=== PATIENT | female | born 1950 | race Caucasian/White ===

== ENCOUNTER 2021-09-02 08:31 | Outpatient (REF) | payer MEDICARE, OTHER, SELFPAY ==
[2021-09-02 09:46] LABS: Alanine Aminotransferase 16 U/L (0-31); Albumin Level 4.2 g/dL (3.5-5.0); Alkaline Phosphatase 110 U/L (39-117); Anion Gap 10 (12-20); Aspartate Amino Transferase 15 U/L (5-31); Bilirubin Total 0.4 mg/dL (0.0-1.0); Blood Urea Nitrogen 16 mg/dL (9-16); Calcium 9.4 mg/dL (8.4-10.2); Carbon Dioxide 27 mmol/L (22-29); Chloride 110 mmol/L (96-108); Estimated Glomerular Filt Rate > 60; Glucose Random 161 mg/dL (60-115); Potassium 4.3 mmol/L (3.3-5.1); Sodium 143 mmol/L (135-145); Total Protein 6.8 g/dL (6.5-8.0)
== END 2021-09-02 08:32 | disposition home or self-care (01) ==
LOC: HO.LAB 08:31
PROVIDERS: PCP Family Medicine; Visit Provider Family Medicine
DX: R19.7 Diarrhea, unspecified (principal); R06.02 Shortness of breath
CPT/HCPCS: 36415; 80053

== ENCOUNTER 2022-06-15 12:03 | Outpatient (REF) | payer MEDICARE, OTHER, SELFPAY ==
[2022-06-15 12:26] LABS: MANUAL DIFF FLAG NO
[2022-06-15 12:38] LABS: Basophils Absolute Auto 0.1 X10*3/uL (0.0-0.2); Basophils Percent Auto 0.5 % (0-2); Eosinophils Absolute Auto 0.1 X10*3/uL (0.0-0.4); Hematocrit 41.7 % (37.0-47.0); Hemoglobin 13.9 g/dl (12.0-16.0); Imm Gran Abs Auto 0.06 X10*3/uL (0.00-0.03); Imm Gran Pct Auto 0.5 % (0.0-0.4); Lymphocytes Absolute Auto 1.5 X10*3/uL (1.2-4.9); Lymphocytes Percent Auto 12.2 % (20-40); Mean Corpuscular HGB Conc 33.3 g/dl (31.0-35.0); Mean Corpuscular Volume 86.9 fL (80.0-98.0); Mean Platelet Volume 11.2 fL (9.4-12.3); Monocytes Absolute Auto 0.8 X10*3/uL (0.1-1.2); Monocytes Percent Auto 6.1 % (2-11); Neutrophils Percent Auto 79.7 % (45-73); Platelet Count 201 X10*3/uL (160-400); Red Cell Distribution Width 12.7 % (11.0-16.0); White Blood Count 12.5 X10*3/uL (4.8-10.8)
[2022-06-15 13:53] LABS: Alanine Aminotransferase 19 U/L (0-31); Albumin Level 4.3 g/dL (3.5-5.0); Alkaline Phosphatase 95 U/L (39-117); Anion Gap 14 (12-20); Aspartate Amino Transferase 16 U/L (5-31); Bilirubin Total 0.6 mg/dL (0.0-1.0); Blood Urea Nitrogen 24 mg/dL (9-16); C Reactive Protein 0.31 mg/dL (< or = 0.50); Carbon Dioxide 25 mmol/L (22-29); Chloride 108 mmol/L (96-108); Estimated Glomerular Filt Rate > 60; Glucose Random 111 mg/dL (60-115); Potassium 4.2 mmol/L (3.3-5.1); Sodium 143 mmol/L (135-145); Total Protein 6.8 g/dL (6.5-8.0)
[2022-06-15 13:58] LABS: Appearance Urine HAZY; Color Urine YELLOW; Glucose Urine UA NEG (NEG); Leukocyte Esterase Urine 1+ (NEG); Nitrite Urine NEG (NEG); Specific Gravity - Urine 1.025 (1.005-1.025); Urine Blood 2+ (NEG); Urine Ketones NEG (NEG); Urine Protein TRACE MG/DL (NEG-TRACE)
[2022-06-15 14:17] LABS: Bacteria Urine 2+ /LPF; Squamous Epithelial Cell Urine 2+ /LPF
== END 2022-06-15 12:04 | disposition home or self-care (01) ==
LOC: HO.LAB 12:03
PROVIDERS: PCP Family Medicine; Visit Provider Family Medicine
DX: R10.13 Epigastric pain (principal); R11.2 Nausea with vomiting, unspecified
CPT/HCPCS: 36415; 80053; 81001; 81003; 85025; 86140; 87086; 87088; 87186

== ENCOUNTER 2022-09-10 09:05 | Outpatient (REF) | payer MEDICARE, OTHER, SELFPAY ==
[2022-09-10 10:46] LABS: Estimated Average Glucose 120 mg/dL; Hemoglobin A1c % 5.8 %
[2022-09-10 11:00] LABS: Glucose Fasting 105 mg/dL (60-99)
== END 2022-09-10 09:06 | disposition home or self-care (01) ==
LOC: HO.LAB 09:05
PROVIDERS: PCP Family Medicine; Visit Provider Family Medicine
DX: R73.9 Hyperglycemia, unspecified (principal)
CPT/HCPCS: 36415; 82947; 83036

== ENCOUNTER 2022-09-23 15:19 | Outpatient (REF) | payer MEDICARE, OTHER, SELFPAY ==
--- NOTE | ~2022-09-23 | XR_ITS ---
EXAMINATION: XR HIP, LEFT CLINICAL INFORMATION: Left hip pain. COMPARISON: None TECHNIQUE: Two views of the left hip. FINDINGS: Bones and soft tissues are normal. No fracture. Alignment is anatomic. Hip joint space is maintained. XR/XR hip LT min 2V IMPRESSION: Unremarkable left hip.
== END 2022-09-23 15:20 | disposition home or self-care (01) ==
LOC: HO.XRAY 15:19
PROVIDERS: PCP Family Medicine; Visit Provider Family Medicine
DX: M25.552 Pain in left hip (principal)
CPT/HCPCS: 73502

== ENCOUNTER 2022-10-27 10:16 | Outpatient (REF) | payer MEDICARE, OTHER, SELFPAY ==
--- NOTE | ~2022-10-27 | XR_ITS ---
EXAMINATION: XR PELVIS CLINICAL INFORMATION: Pain. COMPARISON: None TECHNIQUE: AP view of the pelvis. FINDINGS: There is normal symmetry of bilateral hip joints and SI joints. No visible fracture, dislocation or bony abnormality seen. The soft tissues are normal. XR/XR pelvis 1-2V IMPRESSION: Unremarkable AP pelvis exam and bilateral hips.
== END 2022-10-27 10:17 | disposition home or self-care (01) ==
LOC: HO.HOSX 10:16
PROVIDERS: Visit Provider Physician Assistant
DX: M54.16 Radiculopathy, lumbar region (principal); M25.551 Pain in right hip; M25.552 Pain in left hip
CPT/HCPCS: 72170; 99202

== ENCOUNTER 2023-01-05 10:00 | Outpatient (RCR) | payer MEDICARE, OTHER, SELFPAY ==
--- NOTE | 2023-01-12 07:46 | MHC.PT.DC ---
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 Consistently with decreased or no back pain/hip pain ~2 weeks and able to manage symptoms independently. Pt encouraged to continue HEP and given RTB for home use. Reviewed and completed all exercises. Pt with improvement in dayami to activity overall and demonstrating improvement in bed mobility and amb w/o antalgia. D/C I with HEP today. Electronically signed by: Marianela Quintero PT, DPT Please sign and return to therapist. Thank you for your referral.
== END 2023-01-12 07:46 | disposition home or self-care (01) ==
LOC: HO.PT 10:00
PROVIDERS: PCP Family Medicine; Visit Provider Physician Assistant
DX: M54.16 Radiculopathy, lumbar region (principal)
CPT/HCPCS: 97110; 97140; 97161

== ENCOUNTER 2023-01-05 11:05 | Outpatient (REF) | payer MEDICARE, OTHER, SELFPAY ==
--- NOTE | ~2023-01-05 | XR_ITS ---
EXAMINATION: XR cervical spine min 6V CLINICAL INFORMATION: Pain COMPARISON: None TECHNIQUE: 5 views of the cervical spine were obtained. FINDINGS: The cervical spine is visualized to the level of C6 on the lateral view. 3 mm of retrolisthesis of C4 on C5 Vertebral body heights are maintained. Lateral masses of C1 are well aligned on C2. Visualized portion of the dens is intact. Mild degenerative disc disease at C5/C6, manifested by disc space narrowing and osteophytosis. Uncovertebral hypertrophy and facet arthropathy results in moderate neural foraminal narrowing on the right at C4/C5 and in mild neural foraminal narrowing on the left at C5/C6. No prevertebral soft tissue swelling. XR/XR cervical spine min 6V IMPRESSION: 1. Mild spondylosis of the cervical spine, as above detailed. Spondylolisthesis, as above detailed. 2. Moderate neural foraminal narrowing, as above detailed.
== END 2023-01-05 11:06 | disposition home or self-care (01) ==
LOC: HO.XRAY 11:05
PROVIDERS: PCP Family Medicine; Visit Provider Family Medicine
DX: M54.2 Cervicalgia (principal); M79.601 Pain in right arm
CPT/HCPCS: 72052

== ENCOUNTER 2024-04-12 09:53 | Outpatient (REF) | payer MEDICARE, OTHER, SELFPAY ==
--- NOTE | 2024-04-12 10:00 | EMG_ITS ---
Chief complaint: Right hand tingling Reason for referral: Evaluate for cervical radiculopathy Referred by: Dr. Beverly Procedure done: Right upper extremity NCS/EMG Precautions and/or limitations: None The limb temperature was monitored continuously and remained between 32-36 degrees C during the performance of the NCS. Nerve Conduction Studies Anti Sensory Summary Table ?Stim Site NR Onset (ms) Norm Onset (ms) Peak (ms) Norm Peak (ms) O-P Amp (?V) Norm O-P Amp Site1 Site2 Delta-0 (ms) Dist (cm) Dillon (m/s) Norm Dillon (m/s) Right Median Anti Sensory (2nd Digit) Wrist NR <3.6 >10 Wrist 2nd Digit 14.0 Right Radial Anti Sensory (Thumb) Forearm ? 1.6 2.2 <3.1 42.8 Forearm Thumb 1.6 0.0 Right Ulnar Anti Sensory (5th Digit) Wrist ? 2.4 3.1 <3.7 27.5 >15.0 Wrist 5th Digit 2.4 14.0 58 Motor Summary Table ?Stim Site NR Onset (ms) Norm Onset (ms) O-P Amp (mV) Norm O-P Amp iAmp (mV) Amp (1st) (%) Site1 Site2 Delta-0 (ms) Dist (cm) Dillon (m/s) Norm Dillon (m/s) Right Median Motor (Abd Poll Brev) Wrist ? 6.3 <3.9 10.6 >4.5 13.1 100.0 Elbow Wrist 5.1 22.0 43 >45 Elbow ? 11.4 9.3 11.4 87.7 Right Ulnar Motor (Abd Dig Minimi) Wrist ? 2.5 <3.0 11.6 >5 13.7 100.0 B Elbow Wrist 3.6 20.0 56 >45 B Elbow ? 6.1 9.5 11.5 81.9 A Elbow B Elbow 1.6 10.0 62 >45 A Elbow ? 7.7 10.2 12.5 87.9 EMG ?Side Muscle Nerve Root Ins Act Fibs Psw Amp Dur Poly Recrt Int Pat Comment Right 1stDorInt Ulnar C8-T1 Nml Nml Nml Nml Nml 0 Nml Complete Right FlexCarRad Median C6-7 Nml Nml Nml Nml Nml 0 Nml Complete Right Biceps Musculocut C5-6 Nml Nml Nml Nml Nml 0 Nml Complete Right Triceps Radial C6-7-8 Nml Nml Nml Nml Nml 0 Nml Complete Right Deltoid Axillary C5-6 Nml Nml Nml Nml Nml 0 Nml Complete FINDINGS: Right median motor nerve showed prolonged distal latency, normal amplitude and slow conduction velocity. Right median sensory nerve absent response. All other nerves tested were within normal. Concentric needle EMG was performed in selected muscles of the right upper extremity. Study did not reveal signs of electric abnormalities as shown in the table below. IMPRESSION: 1. This is an abnormal study. 2. There is electrodiagnostic evidence for right moderate-severe median neuropathy at the wrist, consistent with carpal tunnel syndrome. 3. There is no electrodiagnostic evidence for ulnar neuropathy, brachial plexopathy, or cervical radiculopathy. Thank you for your kind referral. Constance Shirley MD, MARIA FERNANDA Board Certified, [place] Board [employer] and Rehabilitation (ABPMR) Board Certified, [place] Board of Electrodiagnostic Medicine (ABEM) [place] [id number] [facility]
== END 2024-04-12 09:54 | disposition home or self-care (01) ==
LOC: HO.NEURO 09:53
PROVIDERS: Visit Provider Family Medicine
DX: R20.2 Paresthesia of skin (principal)
CPT/HCPCS: 95886; 95909

== ENCOUNTER → 2024-04-12 10:00 | Outpatient (BNV) | payer MEDICARE, OTHER, SELFPAY | PROVIDERS: Visit Provider Physical Medicine & Rehabilitation | DX: G56.01 Carpal tunnel syndrome, right upper limb (principal) | CPT/HCPCS: 95886; 95909 ==

== ENCOUNTER 2024-06-25 11:35 | Outpatient (REF) | payer MEDICARE, OTHER, SELFPAY ==
[2024-06-25 11:53] LABS: MANUAL DIFF FLAG NO
[2024-06-25 12:46] LABS: Basophils Absolute Auto 0.1 X10*3/uL (0.0-0.2); Basophils Percent Auto 0.8 % (0-2); Eosinophils Absolute Auto 0.2 X10*3/uL (0.0-0.4); Eosinophils Percent Auto 2.4 % (0-4); Hematocrit 40.7 % (37.0-47.0); Hemoglobin 13.6 g/dl (12.0-16.0); Imm Gran Abs Auto 0.01 X10*3/uL (0.00-0.03); Imm Gran Pct Auto 0.2 % (0.0-0.4); Lymphocytes Percent Auto 33.1 % (20-40); Mean Corpuscular HGB Conc 33.4 g/dl (31.0-35.0); Mean Corpuscular Hemoglobin 29.1 pg (27.0-33.0); Monocytes Absolute Auto 0.5 X10*3/uL (0.1-1.2); Monocytes Percent Auto 7.7 % (2-11); Neutrophils Absolute Auto 3.4 x10*3/uL (2.0-8.3); Neutrophils Percent Auto 55.8 % (45-73); Platelet Count 200 X10*3/uL (160-400); Red Blood Count 4.68 X10*6/uL (4.20-5.50); Red Cell Distribution Width 13.2 % (11.0-16.0); White Blood Count 6.1 X10*3/uL (4.8-10.8)
[2024-06-25 13:43] LABS: Alanine Aminotransferase 18 U/L (0-31); Albumin Level 4.1 g/dL (3.5-5.0); Alkaline Phosphatase 99 U/L (39-117); Anion Gap 13 (12-20); Aspartate Amino Transferase 16 U/L (5-31); Bilirubin Total 0.4 mg/dL (0.0-1.0); Blood Urea Nitrogen 15 mg/dL (9-16); Calcium 9.2 mg/dL (8.4-10.2); Carbon Dioxide 24 mmol/L (22-29); Chloride 111 mmol/L (96-108); Estimated Glomerular Filt Rate > 60; Glucose Random 93 mg/dL (60-115); Potassium 3.8 mmol/L (3.3-5.1); Sodium 144 mmol/L (135-145); Total Protein 6.7 g/dL (6.5-8.0)
[2024-06-25 14:03] LABS: Thyroid Stimulating Hormone 1.34 uIU/mL (0.32-4.0)
== END 2024-06-25 11:36 | disposition home or self-care (01) ==
LOC: HO.LAB 11:35
PROVIDERS: PCP Family Medicine; Visit Provider Family Medicine
DX: R53.83 Other fatigue (principal)
CPT/HCPCS: 36415; 80053; 84443; 85025

== ENCOUNTER 2025-04-23 09:52 | Outpatient (REF) | payer MEDICARE, OTHER, SELFPAY | END 2025-04-23 09:53 | disposition home or self-care (01) | LOC: HO.MAMMO 09:52 | PROVIDERS: PCP Family Medicine; Visit Provider Family Medicine | DX: Z12.31 Encounter for screening mammogram for malignant neoplasm of breast (principal) | CPT/HCPCS: 77063; 77067 ==

== ENCOUNTER → 2025-04-23 10:15 | Outpatient (BNV) | payer MEDICARE, OTHER, SELFPAY | PROVIDERS: PCP Family Medicine; Visit Provider Internal Medicine | DX: Z12.31 Encounter for screening mammogram for malignant neoplasm of breast (principal) | CPT/HCPCS: 77063; 77067 ==

== ENCOUNTER 2025-07-09 15:13 | Outpatient (AMB) | payer MEDICARE, OTHER, SELFPAY ==
--- NOTE | 2025-07-09 15:18 | MHC.PC.OV ---
Vital Signs 07/09/25 15:27 Height 5 ft 6 in Weight 97.976 kg BMI 34.9 BP 130/58 L Respiration 14 Pulse 69 Pulse Source Pulse Oximeter Temp 97.7 F Temp Source Temporal Artery Scan Pulse Oximetry (%) 95 Oxygen Delivery Method Room Air Intake Visit Reasons: Routine /Dr Beverly Auditor/Quality Required: No Accompanied by: Self / Same As Patient Allergies meperidine (From DEMEROL) Adverse Reaction (Unknown, Verified 07/09/25 15:24) NAUSEA & VOMITING ENVIROMENTAL Allergy (Unknown, Uncoded 07/09/25 15:24) ITCHY EYS, RUNNY NOSE, RASH Medication List - Last Reconciled 07/09/25 by FRANCIA Elias lisinopril 10 mg PO DAILY Tobacco use date assessed: 07/09/25 Fall risk assessment: No Falls in past year Last assessed Fall Risk: 07/09/25 Dental Screening Dental Screen Date: 07/09/25 Did you have a dental visit in the last 12 months?: Yes Did you have a dental problem in the last 6 months where you did not have access to dental care?: No Was dental information given to patient?: No HPI HPI Comments History of Present Illness Details 74-year-old female with history of hypertension, obstructive sleep apnea, IBS, asthma, hypercholesterolemia, osteoarthritis presents to the office today for management of chronic conditions and to establish care. Hypertension -compliant with lisinopril 10 mg daily. Blood pressure in the office today 130/58 asthma -controlled, not on inhalers Hypercholesterolemia-not on statin Prediabetes-last hemoglobin A1c 5.8 % in 2018 Obesity class 1 with BMI 34.9. Reports she has lost 30 lb through healthier diet and exercise Concerns: Memory loss, word finding difficulty. Little annoyances. Some difficulty concentrating. 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 Somewhat bothersome. Health maintenance: Last screening mammogram 04/2025 with 1 year follow-up advised, negative for malignancy Last screening colonoscopy 12/2014 with 5 year follow-up advised-overdue. However Cologuard performed with 3 year follow-up advised Due for DEXA scan ROS: General: No fevers, malaise, unintentional weight loss HEENT: No blurred vision, diplopia. No sore throat, nasal congestion, rhinorrhea, sinus pain, ear pain Cardiovascular: No chest pain, palpitations, or leg edema Respiratory: No shortness of breath, wheezing, cough GI: No abdominal pain, nausea, vomiting, diarrhea, constipation, melena, hematochezia : No dysuria, hematuria, increased urinary frequency, decreased urinary output MSK: No myalgia, back pain Neuro: No headaches, weakness, paresthesias. See HPI Skin: No rashes or lesions EXAM: Constitutional - Awake and Alert, No apparent distress Eyes - PERRL Cardiovascular - S1S2, RRR, No edema Respiratory - Normal lung expansion, Normal respiratory effort, No respiratory distress, CTA bilaterally Extremities - no calf tenderness bilaterally, no swelling Skin - Warm/Dry Neurological - Alert & oriented x3. MOCA 0. CN II-XII in tact Psychological - Appropriate affect PFSH Medical History (Updated 07/09/25 @ 15:46 by FRANCIA Elias) Memory loss Obesity VIKTORIYA (obstructive sleep apnea) Hypercholesterolemia Hypertension Surgical History (Updated 07/08/25 @ 16:25 by Silva Mathews) History of colonoscopy (~01/01/15) H/O: section Social History (Updated 10/27/22 @ 13:01 by Marianela Mantilla [facility]) Housing: House Patient Tobacco Use Status: Never used Tobacco e-Cigarette/Vaping Use: Never Used service: No Current occupational status: employed Current occupation: [employer] Cognitive needs: No Hearing needs: No Vision needs: Yes (Rx glasses) Questionnaire PHQ-9 Over the last 2 weeks, how often have you been bothered by any of the following problems? 1. Little interest or pleasure in doing things: several days 2. Feeling down, depressed, or hopeless: several days 3. Trouble falling or staying asleep, or sleeping too much: not at all 4. Feeling tired or having little energy: not at all 5. Poor appetite or overeating: several days 6. Feeling bad about yourself - or that you are a failure or have let yourself or your family down: several days 7. Trouble concentrating on things, such as reading the newspaper or watching television: not at all 8. Moving or speaking so slowly that other people could have noticed. Or the opposite - being so fidgety or restless that you have been moving around a lot more than usual: not at all 9. Thoughts that you would be better off or of hurting yourself in some way: not at all Total score: 4 Source: Developed by Drs. Celestine Quinonez, Delia Ortiz, Dhruv Gentile and colleagues, with an educational reji from [employer]. Thrive Questionnaire Date Thrive assessed: 07/09/25 I am a: Patient What is your living situation today?: I have a steady place to live Within the past 12 months, did the food you bought not last and you didn't have the money to get more?: Never true Within the past 12 months, did you worry whether your food would run out before you got money to buy more?: Never true Do you have trouble paying for medicines?: No Do you have trouble getting transportation to medical appointments?: No Do you have trouble paying your heating and electricity bill?: No Do you have trouble taking care of your child, family member or friend?: No Do you have trouble with day-to-day activities such as bathing, preparing meals, shopping, managing finances, etc.?: No Are you currently unemployed and looking for a job?: No Are you interested in more education?: No Please select the resources that you would like help with: None THRIVE Score: 0 MARGIE-7 AMB Questionnaire MARGIE-7 Date MARGIE - 7 assessed: 07/09/25 Feeling nervous, anxious, or on edge: 1 = Several days Not being able to stop or control worryin = Not at all Worrying too much about different things: 1 = Several days Trouble relaxin = Not at all Being so restless that it is hard to sit still: 0 = Not at all Becoming easily annoyed or irritable: 1 = Several days Feeling afraid as if something awful might happen: 0 = Not at all Total MARGIE-7 score (0-4 normal; 5-9 mild; 10-14 moderate; 15-21 severe): 3 Source: Developed by Drs. Celestine Quinonez, Delia Ortiz, Dhruv Gentile and colleagues, with an educational reji from [employer]. Physical exam (Primary Care) Vital Signs: Last Vital Signs Temp 97.7 F 07/09/25 15:27 Pulse 69 07/09/25 15:27 Resp 14 07/09/25 15:27 BP 130/58 L 07/09/25 15:27 Pulse Ox 95 07/09/25 15:27 Oxygen Delivery Method Room Air 07/09/25 15:27 BMI result Body Mass Index 34.9 Tobacco/Smoking Status: Tobacco use Status Tobacco use date assessed 07/09/25 07/09/25 15:29 Patient Tobacco Use Status Never used Tobacco 07/09/25 15:29 e-Cigarette/Vaping Use Never Used 07/09/25 15:29 PHQ-9: PHQ-9 Score PHQ-9: Total score 4 07/09/25 16:05 Thrive Assessment: Date of Thrive Assessment Date Thrive assessed 07/09/25 07/09/25 16:05 Coding Level of Care Code New Pt Level 4 (20144) Complex EM visit Add On G2211 Diagnoses Irritable bowel syndrome K58.9 Hypertension I10 Hypercholesterolemia E78.00 Word finding difficulty R47.89 Obesity E66.9 Assessment & Plan Assessment & Plan (1) Irritable bowel syndrome: Code(s): K58.9 - Irritable bowel syndrome, unspecified Plan: Stable. Continue voiding triggering foods (2) Hypertension: Code(s): I10 - Essential (primary) hypertension Category: Medical Plan: Controlled. Continue lisinopril 10 mg daily (3) Hypercholesterolemia: Code(s): E78.00 - Pure hypercholesterolemia, unspecified Category: Medical Plan: Lipid panel ordered, ASCVD risk score to be calculated pending results of study (4) Word finding difficulty: Code(s): R47.89 - Other speech disturbances Category: Medical Plan: MRI of the brain ordered. Will also assess relevant labs. Pending results, may refer to memory Clinic versus consider hormone replacement (5) Obesity: Code(s): E66.9 - Obesity, unspecified Category: Medical Plan: Commended on weight loss efforts thus far. Encouraged to continue with healthy diet and exercise Plan Follow-up in the office in 6 months, labs to be completed following the visit today. DEXA scan ordered. Recommend vit d and calcium Orders: Orders Basic Metabolic Panel Today E66.9 - Obesity, unspecified, E78.00 - Pure hypercholesterolemia, unspecified, G47.33 - Obstructive sleep apnea (adult) (pediatric), I10 - Essential (primary) hypertension, K58.9 - Irritable bowel syndrome, unspecified Hemoglobin A1c Today E66.9 - Obesity, unspecified, E78.00 - Pure hypercholesterolemia, unspecified, G47.33 - Obstructive sleep apnea (adult) (pediatric), I10 - Essential (primary) hypertension, K58.9 - Irritable bowel syndrome, unspecified Lipid Panel Today E66.9 - Obesity, unspecified, E78.00 - Pure hypercholesterolemia, unspecified, G47.33 - Obstructive sleep apnea (adult) (pediatric), I10 - Essential (primary) hypertension, K58.9 - Irritable bowel syndrome, unspecified Liver Panel Today E66.9 - Obesity, unspecified, E78.00 - Pure hypercholesterolemia, unspecified, G47.33 - Obstructive sleep apnea (adult) (pediatric), I10 - Essential (primary) hypertension, K58.9 - Irritable bowel syndrome, unspecified Vitamin D 25-OH Total Today E66.9 - Obesity, unspecified, E78.00 - Pure hypercholesterolemia, unspecified, G47.33 - Obstructive sleep apnea (adult) (pediatric), I10 - Essential (primary) hypertension, K58.9 - Irritable bowel syndrome, unspecified MR head/brain wo con Today R41.3 - Other amnesia, R47.89 - Other speech disturbances TSH reflex Free T4 Today R20.2 - Paresthesia of skin, R41.3 - Other amnesia, R47.89 - Other speech disturbances Vitamin B12 Today R20.2 - Paresthesia of skin, R41.3 - Other amnesia, R47.89 - Other speech disturbances XR DEXA axial skeleton Today M89.8X9 - Other specified disorders of bone, unspecified site, N95.9 - Unspecified menopausal and perimenopausal disorder
[2025-07-09 15:27] VITALS: BP 130/58; PULSE 69; RESP 14; TEMP 36.5; O2SAT 95; BMI 34.9
--- OUTSIDE RECORDS SUMMARY | 2025-07-09 16:28 | XMS_ITS | Patient Health Record ---
Author Organization [facility] Address [address] [place] [address] Care Team Providers Care Lining Setter Name Role Phone uRsh (RETIRED) Bar LUKE Primary Care Provider Unavailable Celestine Mendoza Unavailable [phone] Allergies Allergen (clinical drug ingredient) Drug/Non Drug Allergy documented on EMR Reaction Allergy Type Onset Date Status meperidine Demerol Unknown Drug Allergy Active Reason For Referral No Information Medications Medication SIG (Take, Route, Frequency, Duration) Notes Start Date End Date Status Pepcid AC Maximum Strength 20 MG 1 tablet Orally Once a day A ctive MoviPrep 100 GM as directed Orally a s directed for 1 dose 08/29/2014 Active Problems Problem Type SNOMED Code ICD Code Onset Dates Problem Status W/U Status Risk Notes Problem Gastroesophageal reflux disease (638940035) GERD (gastroesophag eal reflux disease) (530.81) Active confirmed Problem Screening for malignant neoplasm of colon (713922009) Screening for colorectal cancer (V76.51) Active confirmed Problem History of adenomatous polyp of colon (459688765) History of adenomatous polyp of colon (V12.72) Active confirmed Plan Of Treatment Future Test Test Name Order Date COLONOSCOPY 08/29/2014 Insurance Providers Payer Name Payer Address Payer Phone Subscriber Number Group Number Insured Name Patient Relationship to Insured Coverage Start Date Coverage End Date [facility] [address] [place] [address] [phone] [id number] FORREST TRUJILLO Self - patient is the insured Medical (General) History Medical History History ICD Code Screening colonoscopy 2008--1 small tubular adenoma removed, sigmoid diverticulosis, and small internal hemorrhoids Denies [place],DM,CVA,renal disease Mild asthma--inhaler prn Sleep apnea-uses CPAP Occasional acid reflux--on Pepcid AC as needed Surgical History Surgery Date(Month/Year) 4 C-sections Appendectomy Surgery for a broken right leg Right hip surgery for a torn muscle
== END 2025-07-09 16:03 | disposition home or self-care (01) ==
LOC: HO.HMCHD 15:14
PROVIDERS: PCP Family Medicine; Visit Provider Physician Assistant
DX: K58.9 Irritable bowel syndrome, unspecified (principal); I10 Essential (primary) hypertension; E78.00 Pure hypercholesterolemia, unspecified; R47.89 Other speech disturbances; E66.9 Obesity, unspecified

== ENCOUNTER → 2025-07-09 15:13 | Outpatient (BNVA) | payer MEDICARE, OTHER, SELFPAY | PROVIDERS: PCP Family Medicine; Visit Provider Physician Assistant | DX: Z76.89 Persons encountering health services in other specified circumstances (principal); K58.9 Irritable bowel syndrome, unspecified; I10 Essential (primary) hypertension; E78.00 Pure hypercholesterolemia, unspecified; R47.89 Other speech disturbances; E66.9 Obesity, unspecified; Z68.34 Body mass index [BMI] 34.0-34.9, adult; J45.909 Unspecified asthma, uncomplicated; Z79.899 Other long term (current) drug therapy; Z13.39 Encounter for screening examination for other mental health and behavioral disorders; Z13.30 Encounter for screening examination for mental health and behavioral disorders, unspecified | CPT/HCPCS: 96127; 99202 ==

== ENCOUNTER 2025-07-27 14:33 | Outpatient (REF) | payer MEDICARE, OTHER, SELFPAY ==
--- NOTE | ~2025-07-27 | MR_ITS ---
CLINICAL HISTORY: R41.3 - Other amnesia MR Brain without gadolinium Comparison: None provided Findings: No restricted diffusion. No intra-axial mass or hemorrhage. No hydrocephalus or midline shift. Small FLAIR hyperintensities in the cerebral hemispheric white matter likely due to mild age-related cerebral hemispheric white matter ischemic changes. No evidence of significant cerebral hemispheric volume loss. No evidence of asymmetric mesial temporal lobe volume loss. Vascular flow voids are intact. Orbital contents are unremarkable. Small left frontal sinus polyp/retention cyst. Left maxillary sinus polyps/retention cysts and mild right maxillary sinus polypoid mucosal thickening. Partial opacification/mucosal thickening of the ethmoid sinuses. No focal bone lesion. IMPRESSION: Small FLAIR hyperintensities in the cerebral hemispheric white matter likely due to mild age-related cerebral hemispheric white matter ischemic changes. No evidence of significant cerebral hemispheric volume loss. No evidence of asymmetric mesial temporal lobe volume loss. This document has been electronically signed by: Elizabeth Pena MD on 07/28/2025 09:35:08
--- OUTSIDE RECORDS SUMMARY | 2025-07-27 14:44 | XMS_ITS | Patient Health Record ---
Author Organization [facility] Address [address] [place] [address] Care Team Providers Care Blackener Name Role Phone Rush (RETIRED) Bar LUKE Primary Care Provider Unavailable Celestine Mendoza Unavailable [phone] Allergies Allergen (clinical drug ingredient) Drug/Non Drug [...] Status Risk Notes Problem Gastroesophageal reflux disease (140217289) GERD (gastroesophag eal reflux disease) (530.81) Active confirmed Problem Screening for malignant neoplasm of colon (217050799) Screening for colorectal cancer (V76.51) Active confirmed Problem History of adenomatous polyp of colon (716117370) History of adenomatous polyp of colon (V12.72) Active confirmed Plan Of Treatment Future Test Test Name Order Date COLONOSCOPY 08/29/2014 Insurance Providers Payer Name Payer Address Payer Phone Subscriber Number Group Number Insured Name Patient Relationship to Insured Coverage Start Date Coverage End Date [facility] [address] [place] [address] [id number] FORREST TRUJILLO Self - patient is the insured Medical (General) History Medical History History ICD Code Screening colonoscopy 2008--1 small tubular adenoma removed, sigmoid diverticulosis, and small internal hemorrhoids Denies [place],DM,CVA,renal disease Mild asthma--inhaler prn Sleep apnea-uses CPAP Occasional acid reflux--on Pepcid AC as needed Surgical History Surgery Date(Month/Year) 4 C-sections Appendectomy Surgery for a broken right leg Right hip surgery for a torn muscle
== END 2025-07-27 14:34 | disposition home or self-care (01) ==
LOC: HO.MRI 14:33
PROVIDERS: Visit Provider Physician Assistant
DX: R41.3 Other amnesia (principal); R47.89 Other speech disturbances
CPT/HCPCS: 70551

== ENCOUNTER 2025-08-26 09:16 | Outpatient (REF) | payer MEDICARE, OTHER, SELFPAY ==
--- OUTSIDE RECORDS SUMMARY | 2025-08-26 10:05 | XMS_ITS | Patient Health Record ---
Author Organization [facility] Address [address] [place] [address] Care Team Providers Care E Commerce Merchandising Coordinator Name Role Phone Rush (RETIRED) Bar LUKE Primary Care Provider Unavailable Celestine Mendoza Unavailable [phone] Allergies Allergen (clinical drug ingredient) Drug/Non Drug Allergy documented on EMR Reaction Allergy Type Onset Date Status meperidine Demerol Unknown Drug Allergy Active Reason For Referral No Information Medications Medication SIG (Take, Route, Frequency, Duration) Notes Start Date End Date Status Pepcid AC Maximum Strength 20 MG 1 tablet Orally Once a day A ctive MoviPrep 100 GM as directed Orally a s directed; Duration: 1 dose 08/29/2014 Activ e Problems Problem Type SNOMED Code ICD Code Onset Dates Problem Status W/U Status Risk Notes Problem Gastroesophageal reflux disease (627667791) GERD (gastroesophag eal reflux disease) (530.81) Active confirmed Problem Screening for malignant neoplasm of colon (299467857) Screening for colorectal cancer (V76.51) Active confirmed Problem History of adenomatous polyp of colon (256137004) History of adenomatous polyp of colon (V12.72) Active confirmed Plan Of Treatment Future Test Test Name Order Date COLONOSCOPY 08/29/2014 Insurance Providers Payer Name Payer Address Payer Phone Subscriber Number Group Number Insured Name Patient Relationship to Insured Coverage Start Date Coverage End Date [facility] [address] [place] [phone] [id number] FORREST TRUJILLO Self - patient is the insured Medical (General) History Medical History History ICD Code Screening colonoscopy 2008--1 small tubular adenoma removed, sigmoid diverticulosis, and small internal hemorrhoids Denies [place],DM,CVA,renal disease Mild asthma--inhaler prn Sleep apnea-uses CPAP Occasional acid reflux--on Pepcid AC as needed Surgical History Surgery Date(Month/Year) 4 C-sections Appendectomy Surgery for a broken right leg Right hip surgery for a torn muscle
[2025-08-26 10:56] LABS: Alanine Aminotransferase 15 U/L (0-31); Albumin Level 4.2 g/dL (3.5-5.0); Alkaline Phosphatase 100 U/L (39-117); Anion Gap 10 (12-20); Aspartate Amino Transferase 19 U/L (5-31); Blood Urea Nitrogen 16 mg/dL (9-16); Calcium 9.0 mg/dL (8.4-10.2); Carbon Dioxide 27 mmol/L (22-29); Chloride 111 mmol/L (96-108); Cholesterol 237 mg/dL (<200); Estimated Glomerular Filt Rate > 60; HDL Cholesterol 56 mg/dL (>40); Potassium 4.3 mmol/L (3.3-5.1); Sodium 144 mmol/L (135-145); Total Protein 6.7 g/dL (6.5-8.0); Triglycerides 95 mg/dL (<150)
[2025-08-26 11:11] LABS: Vitamin B12 234 pg/mL (200-900)
== END 2025-08-26 09:17 | disposition home or self-care (01) ==
LOC: HO.LAB 09:16
PROVIDERS: PCP Physician Assistant; Visit Provider Physician Assistant
DX: I10 Essential (primary) hypertension (principal); E78.00 Pure hypercholesterolemia, unspecified; K58.9 Irritable bowel syndrome, unspecified; G47.33 Obstructive sleep apnea (adult) (pediatric); E66.9 Obesity, unspecified; R47.89 Other speech disturbances; R20.2 Paresthesia of skin; R41.3 Other amnesia; Z13.1 Encounter for screening for diabetes mellitus
CPT/HCPCS: 36415; 80048; 80061; 80076; 82306; 82607; 83036; 84443

== ENCOUNTER 2025-09-15 09:00 | Outpatient (REF) | payer MEDICARE, OTHER, SELFPAY ==
--- NOTE | ~2025-09-15 | MM_ITS ---
EXAMINATION: DXA BONE DENSITY AXIAL HISTORY: M89.8X9 - Other specified disorders of bone, unspecified site TECHNIQUE: Research [employer]ist Dual energy absorptiometry (DEXA) of the lumbar spine, total left hip, and femoral neck was performed. COMPARISON: There are no prior studies for comparison. FINDINGS: The bone mineral density of the lumbar spine is 1.264 g/cm2, corresponding to a T-score of 0.7, and a Z-score of 1.4. This is indicative of normal bone mineral density. The bone mineral density of the left total hip is 1.050 g/cm2, corresponding to a T-score of 0.3, and a Z-score of 1.3. This is indicative of normal bone mineral density. The bone mineral density of the left femoral neck is 0.812 g/cm2, corresponding to a T-score of -1.6, and a Z-score of -0.4. This is indicative of osteopenia. FRACTURE RISK: The FRAX index suggests a risk of major osteoporotic fracture of 11.4%, and of hip fracture 2.4%. MM/XR DEXA axial skeleton IMPRESSION: Based on bone mineral density, and according to World Health Organization (WHO) criteria, the diagnosis is consistent with osteopenia. Statistically, 68% of repeat scans fall within 1 SD (+/- 0.010 g/cm2 for AP spine L1-L4) and 1 SD (+/- 0.012 g/cm2 for femur total) FRAX is a trademark of the [employer]'s [place] [facility] [employer], a World Health Organization (WHO) Collaborating Center. Electronically signed by: Celestine Simpson MD 09/15/2025 10:31 AM [facility]
--- OUTSIDE RECORDS SUMMARY | 2025-09-15 09:50 | XMS_ITS | Patient Health Record ---
Author Organization [facility] Address [address] [place] [address] Care Team Providers Care Rail Transportation Tabeler Name Role Phone Rush (RETIRED) Bar LUKE Primary Care Provider Unavailable Celestine Mendoza Unavailable [phone] Allergies Allergen (clinical drug ingredient) Drug/Non Drug [...] Status Risk Notes Problem Gastroesophageal reflux disease (248399420) GERD (gastroesophag eal reflux disease) (530.81) Active confirmed Problem Screening for malignant neoplasm of colon (446018966) Screening for colorectal cancer (V76.51) Active confirmed Problem History of adenomatous polyp of colon (950370299) History of adenomatous polyp of colon (V12.72) Active confirmed Plan Of Treatment Future Test Test Name Order Date COLONOSCOPY 08/29/2014 Insurance Providers Payer Name Payer Address Payer Phone Subscriber Number Group Number Insured Name Patient Relationship to Insured Coverage Start Date Coverage End Date [facility] [address] [place] [address] [id number] FORREST TRUJILLO Self - patient is the insured Medical (General) History Medical History History ICD Code Screening colonoscopy 2008--1 small tubular adenoma removed, sigmoid diverticulosis, and small internal hemorrhoids Denies [place],DM,CVA,renal disease Mild asthma--inhaler prn Sleep apnea-uses CPAP Occasional acid reflux--on Pepcid AC as needed Surgical History Surgery Date(Month/Year) 4 C-sections Appendectomy Surgery for a broken right leg Right hip surgery for a torn muscle
== END 2025-09-15 09:01 | disposition home or self-care (01) ==
LOC: HO.MAMMO 09:00
PROVIDERS: PCP Physician Assistant; Visit Provider Physician Assistant
DX: Z13.820 Encounter for screening for osteoporosis (principal); M89.8X9 Other specified disorders of bone, unspecified site; Z78.0 Asymptomatic menopausal state
CPT/HCPCS: 77080

== ENCOUNTER → 2025-09-15 09:15 | Outpatient (BNV) | payer MEDICARE, OTHER, SELFPAY | PROVIDERS: PCP Physician Assistant; Visit Provider Radiology Diagnostic Radiology | DX: E28.39 Other primary ovarian failure (principal) | CPT/HCPCS: 77080 ==